=== PATIENT | female | born 1975 | race Asian ===

== ENCOUNTER 2018-04-09 07:53 | Emergency (ER) | payer OTHER ==
--- NOTE | 2018-04-09 08:25 | EDPHY ---
HPI/HX/ROS/PE/MDM Narrative: CHIEF COMPLAINT: Nose bleed HPI: The patient is a 43 y/o female complaining of an intermittent nose bleed onset 2 days ago. The bleeding has been from both nares but primarily from the left side. She did have some nose bleeding this morning, but this has since stopped. The patient also notes that she has had some bleeding from her gums when she brushes her teeth. The patient's son and interpreted for the patient at bedside. REVIEW OF SYSTEMS: Aside from elements discussed in the HPI, a comprehensive 10-point review of systems was reviewed and is negative. PMH: Denies SOCIAL HISTORY: and son at bedside PHYSICAL EXAM: General: Patient is alert, in no acute distress. ENT: Eyes are normal to inspection. ET inspection normal. No active bleeding, dry and irritated nares. Neck: Normal inspection. Full range of motion. Respiratory: No respiratory distress. Breath sounds normal bilaterally. Cardiovascular: Regular rate and rhythm. Strong peripheral pulses. Normal cap refill. Abdomen: The abdomen is nontender to palpation. There are no peritoneal signs. There are normal bowel sounds. Back: Normal to inspection. No tenderness to palpation. Skin: Normal color. No rash. Warm and dry. Extremities: Normal appearance. Full range of motion. Neuro: Oriented x3. Normal motor function. Normal sensory function. ED Course: 924: Reassessed patient and discussed normal laboratory results. I have advised the patient to use Neosporin in her nares and to follow up with an ENT in 72 hours. Return precautions provided; patient is comfortable with this plan. MDM: This patient presents with nosebleed that has resolved. There is no evidence of coagulation abnormality. No packing or cauterization indicated at this time. I have advised family on use of neosporin in nose to keep moist and will refer to ENT. - Data Points Laboratory Results: Laboratory Results 04/09/18 08:43 04/09/18 04/09/18 08:43 08:43 WBC 6.86 10^3/uL 10^3/uL (3.80-9.50) RBC 4.42 10^6/uL 10^6/uL (4.18-5.33) Hgb 12.3 g/dL L g/dL (12.6-16.3) Hct 37.7 % L % (38.0-47.0) MCV 85.3 fL fL (81.5-99.8) MCH 27.8 pg L pg (27.9-34.1) MCHC 32.6 g/dL g/dL (32.4-36.7) RDW 12.8 % % (11.5-15.2) Plt Count 338 10^3/uL 10^3/uL (150-400) MPV 10.7 fL fL (8.7-11.7) Neut % (Auto) 45.6 % % (39.3-74.2) Lymph % (Auto) 34.8 % % (15.0-45.0) [place] % (Auto) 7.0 % % (4.5-13.0) Eos % (Auto) 11.4 % H % (0.6-7.6) Baso % (Auto) 0.9 % % (0.3-1.7) Nucleat RBC Rel Count 0.0 % % (0.0-0.2) Absolute Neuts (auto) 3.13 10^3/uL 10^3/uL (1.70-6.50) Absolute Lymphs (auto) 2.39 10^3/uL 10^3/uL (1.00-3.00) Absolute Monos (auto) 0.48 10^3/uL 10^3/uL (0.30-0.80) Absolute Eos (auto) 0.78 10^3/uL H 10^3/uL (0.03-0.40) Absolute Basos (auto) 0.06 10^3/uL 10^3/uL (0.02-0.10) Absolute Nucleated RBC 0.00 10^3/uL 10^3/uL (0-0.01) Immature Gran % 0.3 % % (0.0-1.1) Immature Gran # 0.02 10^3/uL 10^3/uL (0.00-0.10) PT 13.3 SEC SEC (12.0-15.0) INR 0.99 (0.83-1.16) APTT 28.6 SEC SEC (23.0-38.0) General Time Seen by Provider: 04/09/18 08:24 Initial Vital Signs: Initial Vital Signs Temperature (C) 36.7 C 04/09/18 08:06 Heart Rate 67 04/09/18 08:06 Respiratory Rate 18 04/09/18 08:06 Blood Pressure 100/75 04/09/18 08:06 O2 Sat (%) 97 04/09/18 08:06 O2 Delivery Mode Room Air Allergies/Adverse Reactions: No Known Allergies Allergy (Unverified 04/09/18 08:05) Home Medications: Medication Instructions Recorded NK [No Known Home Meds] 04/09/18 Departure - Departure Disposition: Home, Routine, Self-Care Clinical Impression: Nosebleed Condition: Good Instructions: Nosebleed (ED) Additional Instructions: If the nosebleed starts again, pinch the nose and hold it for 10 minutes. Use Neosporin by applying it to a Q-tip and rubbing it inside of the nose. Follow up with an ENT specialist in 72 hours, you have been referred to Dr. Servin. Return to emergency department for fever, recurrence of bleeding or other concerns. Referrals: Jay Servin MD [Medical Doctor] - As per Instructions Report Scribed for: Jay Ruelas Report Scribed by: Aysha Rhodes Date of Report: 04/09/18 Time of Report: 08:25 Physician Review and Approval Statement: Portions of this note were transcribed by an ED scribe. I personally performed the history, physical exam, and medical decision making; and confirm the accuracy of the information in the transcribed note.
[2018-04-09 09:08] LABS: PLATELET COUNT 338 10^3/uL (150-400)
[2018-04-09 09:22] LABS: INR 0.99 (0.83-1.16); PROTIME(PATIENT) 13.3 SEC (12.0-15.0)
[2018-04-09 09:33] VITALS: BP 101/74
== END 2018-04-09 09:30 | disposition home or self-care (01) ==
DX: R04.0 Epistaxis (principal)